=== PATIENT | male | born 1995 | race Caucasian/White ===

== ENCOUNTER 2016-12-21 11:15 | Emergency (ER) | payer BC, MEDICAID ==
[~2016-12-21] VITALS: Ht 190.5 cm; Wt 72.0 kg
[~2016-12-21 11:15] MED LIST: NPH10OT RIGHT EAR
[2016-12-21 11:18] VITALS: Ht 190.5 cm; Wt 72.0 kg
[2016-12-21] MEDS ORDERED: CLOT30CR24 TOP (11:52)
--- NOTE | 2016-12-21 11:57 | ERD ---
ER Documentation Chief Complaint Date/Time DATE: 12/21/16 TIME: 11:54 Chief Complaint redness on genital area HPI 20-year-old male who presents the emergency room complaining of a sticky sensation near the glans penis and he is uncircumcised. He has noted several days of this. He states that he uses body wash to clean the area. Occasionally he has noted a red area in between the skin here. He denies any drainage or discharge, no dysuria urgency or frequency, no unprotected intercourse. ROS All systems reviewed and are negative except as per history of present illness. Medications Home Meds Active Scripts Clotrimazole* (Clotrimazole* AF) 1% - 30 Gm Cream.gm., 1 APPLIC TOP BID for 7 Days, TUB Prov:GONZÁLEZ BATEMAN MD 12/21/16 Neomycin/Polymyxin/Hydrocort* (Cortisporin* Otic) 10 Ml Susp, 4 DROP RIGHT EAR TID for 7 Days, EA 0 Refills Prov:SAM DUMONT PA-C 04/28/15 Allergies Allergies: Coded Allergies: No Known Drug Allergies (Verified Allergy, Unknown, 04/28/15) PMhx/Soc Hx Alcohol Use: No Hx Substance Use: No Hx Tobacco Use: No Physical Exam Vitals Vital Signs Date Time Temp Pulse Resp B/P Pulse Ox O2 Delivery O2 Flow Rate FiO2 12/21/16 11:18 98.1 76 18 121/74 98 Physical Exam General: Well developed, well nourished, no acute distress Head: Normocephalic, atraumatic Eyes: Pupils equally reactive, EOM intact ENT: Moist mucous membranes Neck: Supple, no lymphadenopathy Respiratory: Lungs clear bilaterally, no distress Cardiovascular: RRR, no murmurs, rubs, or gallops Abdominal: Soft, non-tender, non-distended, no peritoneal signs : Uncircumcised male with easily reducible and retractable foreskin, no irritation erythema or satellite lesions noted to the glans or skin. The foreskin was left in reduced position. Bilateral descended testicles without focal tenderness, no lesions, no lymphadenopathy MSK: No edema, no unilateral swelling, 5/5 strength Neurologic: Alert and oriented, moving all extremities, normal speech, no focal weakness, no cerebellar signs Skin: No rash Psych: Normal mood Procedures/MDM The patient is concerned about a sticky sensation near the glans between his foreskin and the penis. There are no signs or symptoms concerning for infection. Consider possible contact balanoposthitis versus early candidal balanoposthitis. The patient was advised in proper for skin care techniques, he was advised to use an unscented cleanser and make sure the areas clean and dry after showering and cleaning the area. He will be given a prescription for clotrimazole given potential for candidal infection the low clinical concern for this. No evidence of STD, no evidence of paraphimosis or phimosis. Patient was given reassurance and can be discharged. Departure Diagnosis: Primary Impression: Candidal balanoposthitis Condition: Good Patient Instructions: Balanoposthitis Additional Instructions: Call your primary care doctor TOMORROW for an appointment during the next 1 WEEK.Tell the company secretary that you were referred from this facility.See the doctor sooner or return here if your condition worsens before your appointment time. GONZÁLEZ BATEMAN MD Dec 21, 2016 11:57
== END 2016-12-21 12:15 | disposition home or self-care (01) ==
LOC: FTE 11:15
DX: B37.42 Candidal balanitis (principal)
CPT/HCPCS: 99283